=== PATIENT | male | born 1970 | race Caucasian/White ===

== ENCOUNTER 2019-11-21 07:35 | Day surgery (SDC) | payer BC ==
[2019-11-17 12:32] VITALS: BMI 24.9
[~2019-11-21 07:35] MED LIST: BUPIVACAINE HCL/PF 0.25% (2.5MG/ML) 10 ML VIAL STI ONE
[2019-11-21] MEDS ORDERED: PROPOFOL 20 ML ONE (09:36)
[2019-11-21] MEDS ORDERED: LIDOCAINE HCL/PF 2% SDV 5ML VIAL ONE (09:36)
[2019-11-21] MEDS ORDERED: DEXAMETHASONE SOD PHOSPHATE 4 MG/1 ML VIAL ONE (09:36)
[2019-11-21] MEDS ORDERED: KETOROLAC TROMETHAMINE 30 MG/1 ML VIAL ONE (09:36)
[2019-11-21] MEDS ORDERED: ONDANSETRON 4 MG/2 ML VIAL ONE (09:36)
[2019-11-21] MEDS ORDERED: ceFAZolin SODIUM 1 GM VIAL ONE (09:36)
[2019-11-21] MEDS ORDERED: MIDAZOLAM HCL 2 MG/2 ML SINGLE DOSE VIAL ONE (09:37)
[2019-11-21] MEDS ORDERED: CLINDAMYCIN PHOSPHATE 600 MG/4 ML VIAL ONE (09:59)
[2019-11-21] MEDS ORDERED: BUPIVACAINE HCL/PF 2.5 MG/ML - 30 ML VIAL IJ ONE (10:03)
[2019-11-21] MEDS ORDERED: BUPIVACAINE HCL/PF 0.25% (2.5MG/ML) 10 ML VIAL STI ONE (10:50)
[2019-11-21 11:45] VITALS: TEMP 97.6
[2019-11-21 12:52] VITALS: BP 113/70; PULSE 63
--- NOTE | 2019-11-22 14:38 | OP ---
[facility] DATE OF OPERATION: 11/21/2019 SURGEON: Joni Jiménez MD TOP DYEING MACHINE TENDER: KHUSHI Espinal PREOPERATIVE DIAGNOSES: 1. Right knee medial and lateral meniscal tear. 2. Right knee cartilage injury. 3. Right knee synovitis. POSTOPERATIVE DIAGNOSES: 1. Right knee medial and lateral meniscal tear. 2. Right knee cartilage injury. 3. Right knee synovitis. PROCEDURE: 1. Right knee arthroscopy with abrasion-plasty and chondroplasty, CPT code 10923. 2. Right knee arthroscopy with synovectomy, extensive, CPT code 94228. FINDINGS: 1. Patient is previous arthroscopy with previous partial medial and lateral meniscus. 2. Medial meniscus, previous meniscectomy, partial. 3. Lateral meniscus, previous meniscectomy, particularly. 4. Extensive synovitis medial and lateral patellofemoral notch area with extension into all 3 compartments of the knee joint. 5. Excessive thickening going to suprapatellar bursa. 6. Minor grade 1 changes anterior and medial femorotibial plateau. 7. Minor grade 2 changes anterior and lateral tibial plateau. 8. ACL and PCL intact. 9. Anterior grade 4 changes site of synovial adhesions, anterior portion of patella, and patellofemoral trochlea, 4 cm x 2 cm patella, 3 cm x 2 cm patellofemoral trochlea with surrounding grade 2-3 changes. PROCEDURE: Informed consent was obtained. The patient came to the operating room, where the lower extremity was prepped and draped in a sterile fashion. A tourniquet was placed on the upper thigh, but not inflated. Using standard arthroscopic technique, a lateral incision and portal was made to allow for introduction of the camera into the suprapatellar bursa. This was then taken to the medial joint line, where under direct visualization, a medial incision and portal was made. Excessive synovium noted in the medial, lateral and patellofemoral and notch area was removed by an upbiter, shaver and Bovie cautery. This was found to bring in inflammatory tissue into the joint surface, a source of pain and dysfunction. Probing of the medial and lateral meniscus found tears, as described in the findings. These were removed with the upbiter and shaver and taken back to a stable rim. Grade 2 to 3 degenerative changes were treated with a chondroplasty, removing all flaking surfaces with low-setting Bovie along the periphery to prevent further flaking. Grade 4 changes, as noted, were treated with an abrasoplasty, creating a bleeding surface at the bone/cartilage interface. Aggressive debridement with shaver/vinicius created bleeding surface. Micro fracture also done when indicated in findings. All areas of the knee were once again reexamined. The knee was then drained and a single suture was placed in all portals. A sterile dressing was placed and the patient was transferred to the recovery room without complication. Patient had 60 mL of fluid drained at the initial evaluation. Extensive synovitis was noted diffusely across the joint with extension into the medial and lateral patellofemoral area. Thickened vascularity and aggressive synovial extensions into the medial and lateral patellofemoral going across the cartilage. The PA listed above was present and assisted at surgery. Their presence was absolutely medically necessary for the completion of the procedure. They helped hold the arthroscopy, pass instruments (and implants when indicated) and the procedure could not have been completed without their assistance. JONI JIMÉNEZ M.D. [id number]
--- NOTE | 2019-11-26 12:58 | PATH ---
Surgical Pathology Report Patient Name: MELINA PANTOJA Med. Rec. #: [id number] /Age/Gender: 1970 (Age: 49) / M Account: [id number] Location: [facility] AMBUL[facility]ORY Taken: 11/21/2019 Received: 11/21/2019 Reported: 11/26/2019 Physicians: Joni Montenegro M.D. Specimen(s) Received A: SHAVINGS RIGHT KNEE B: SYNOVIUM RIGHT KNEE Clinical History Right knee tear Final Diagnosis A. KNEE, RIGHT, ARTHROSCOPIC SHAVINGS: SYNOVIUM SHOWING MARKED ACUTE AND CHRONIC INFLAMMATION WITH REACTIVE SYNOVIAL HYPERPLASIA. B. SYNOVIUM, RIGHT KNEE, EXCISION: SYNOVIUM SHOWING MARKED ACUTE AND CHRONIC INFLAMMATION AND REACTIVE SYNOVIAL HYPERPLASIA. Electronically Signed Jessica Riley M.D. Gross Description A. Received in formalin, labeled "right knee shavings," is a 4.7 x 4.5 x 0.4 cm. aggregate of motta-yellow soft tissue fragments. A customer retention representative portion is submitted in one cassette. B. Received in formalin labeled "synovium right knee," are 3 motta-yellow portions of soft tissue ranging from 0.4-1.3 cm in greatest dimension. The specimens are submitted in toto in one cassette. 11/24/2019 [facility]11/24/2019
== END 2019-11-21 13:00 | disposition home or self-care (01) ==
LOC: FASU 07:35
PROVIDERS: ATTEND Orthopaedic Surgery
PROC: 0SBC4ZZ Excision of Right Knee Joint, Percutaneous Endoscopic Approach (ICD-10-PCS; 2019-11-21)
PROC: 0SBC4ZZ Excision of Right Knee Joint, Percutaneous Endoscopic Approach (ICD-10-PCS; 2019-11-21)
PROC: 0SBC4ZZ Excision of Right Knee Joint, Percutaneous Endoscopic Approach (ICD-10-PCS; principal; 2019-11-21 09:30)
DX: S83.241A Other tear of medial meniscus, current injury, right knee, initial encounter (principal); S83.281A Other tear of lateral meniscus, current injury, right knee, initial encounter; S83.8X1A Sprain of other specified parts of right knee, initial encounter; M65.861 Other synovitis and tenosynovitis, right lower leg; X58.XXXA Exposure to other specified factors, initial encounter; Y93.9 Activity, unspecified; Y92.9 Unspecified place or not applicable
CPT/HCPCS: 88304-TC; 94760